=== PATIENT | male | born 1995 | race Caucasian/White ===

== ENCOUNTER 2024-10-04 12:34 | Emergency (ER) | payer BC, SELFPAY ==
[2024-10-04 12:41] VITALS: BP 147/74; PULSE 77; RESP 16; TEMP 37.1; O2SAT 100
--- NOTE | 2024-10-04 12:43 | ED.GENADULT ---
HPI - General Adult General Chief complaint: Dizziness Stated complaint: Dizziness Time Seen by Provider: 10/04/24 12:44 Source: patient Mode of arrival: ambulatory Limitations: no limitations History of Present Illness HPI narrative: 29 yo M presents with c/o dizziness for the past 6 hours. Dizziness is intermittent with blurry vision. none at this time. worse when standing or changing positions. Denies pain/headache. Reports feeling of fullness in sinuses but doesn't really feel congested. Denies sore throat, cough, fever, fatigue. Pt mentioned that he had migraines in the past that caused vision changes. Has not had any recently and never saw his PCP for them. Usually lasted about 20 minutes. ambulatory with steady gait. No numbness/tingling, weakness or pain to extremitities. Eating and drinking normally. no slurred speech. All systems reviewed and negative except as noted above. Related Data Allergies Allergy/AdvReac Type Severity Reaction Status Date / Time amoxicillin [From Augmentin] Allergy Hives Verified 10/04/24 12:47 clavulanic acid Allergy Hives Verified 10/04/24 12:47 [From Augmentin] Review of Systems Review of Systems: CONSTITUTIONAL: Denies fever, chills, or sweats. EYES: Denies visual changes, redness, or discharge. Reports intermittent blurry vision. ENT: Denies rhinorrhea, congestion, sore throat, or otalgia. CARDIOVASCULAR: Denies chest pain, palpitations, or edema. RESPIRATORY: Denies cough or dyspnea. GASTROINTESTINAL: Denies abdominal pain, nausea, vomiting, or diarrhea. GENITOURINARY: Denies dysuria or hematuria. SKIN: Denies rash or itching. MUSCULOSKELETAL: Denies back pain, joint pain, or myalgia. NEUROLOGIC: Denies headache, numbness, or weakness. Reports intermittent dizziness. PSYCHIATRIC: Denies anxiety or depression. All other systems reviewed are negative, except as documented in HPI. FORMERLY [facility] Surgical History Surgical History S/P LASIK surgery of both eyes Family History Family History Father Hypertension Social History Social History (Updated 03/07/23 @ 07:01 by Deisy Paul MA) Smoking status: Never smoker Alcohol use details: about once a month Substance use: never Substance use type: does not use Lack of Transportation: No Lack of Food: Never True Current Housing: I Have Housing Concerned About Future Housing: No Difficulty Paying Gas/Electric Bills: No Difficulty Paying for Meds: No Currently Unemployed: No Education: High School Diploma/GED Difficulty w/ Childcare or Family Care: No Living arrangements: with family Occupation/Education: occupation 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 There is no relevant family history pertinent to the presenting complaint. Exam Narrative: GENERAL: This is a well-nourished, well-developed patient, in no apparent distress. HEAD: normocephalic, atraumatic. EYES: PERRL. Sclera clear/white. Vision is grossly intact. Extraocular motions intact. EARS: External ears normal, auditory canals clear and without drainage, mild fluid to bilateral TMs without erythema or perforation. Hearing grossly intact. NOSE: External nose normal with no obvious nasal discharge, nares without redness, no rhinorrhea. THROAT: Mucous membranes moist, posterior pharynx clear. NECK: Neck supple, non-tender without lymphadenopathy, masses or thyromegaly. CARDIOVASCULAR: Regular rate and rhythm without murmurs, gallops, or rubs. RESPIRATORY: Clear to auscultation. Breath sounds equal bilaterally. No wheezes, rales, or rhonchi. SKIN: warm, Dry, intact with no suspicious lesions or rash, good texture and turgor. NEURO: awake, alert, and oriented to person, place and time. There were no obvious focal neurologic abnormalities. EXTREMITIES: No joint tenderness, effusion, or edema noted. Course Course Level of Care: Express Care Visit Vital Signs Vital signs: Vital Signs Temperature 37.1 C 10/04/24 12:41 Pulse Rate 77 10/04/24 12:41 Respiratory Rate 16 10/04/24 12:41 Blood Pressure 147/74 H 10/04/24 12:41 Pulse Oximetry 100 10/04/24 12:41 Temperature 37.1 C 10/04/24 12:41 Pulse Rate 77 10/04/24 12:41 Respiratory Rate 16 10/04/24 12:41 Blood Pressure 147/74 H 10/04/24 12:41 Pulse Oximetry 100 10/04/24 12:41 Reviewed Medical Decision Making MDM Narrative Medical decision making narrative: Patient's exam normal other than mild fluid to bilateral TMs. No neuro deficits. Negative influenza test. Blood sugar was 90. EKG HR 72, normal sinus with arrhythmia. No CP or SOB. Recommend pt follow up with PCP for further evaluation of EKG. Recommend flonase and Claritin D. If symptoms not improvoing or for any worsening of symptoms go to the ER. pt voiced understanding. Patient is aware of diagnosis, understands and agrees to treatment plan. Anticipatory guidance given. Patient agrees to follow-up as directed and is aware of reasons to seek care at the emergency department. Portions of this record may have been created with voice recognition software Vital Signs Vital Signs: Vital Signs Temperature 37.1 C 10/04/24 12:41 Pulse Rate 77 10/04/24 12:41 Respiratory Rate 16 10/04/24 12:41 Blood Pressure 147/74 H 10/04/24 12:41 Pulse Oximetry 100 10/04/24 12:41 Temperature 37.1 C 10/04/24 12:41 Pulse Rate 77 10/04/24 12:41 Respiratory Rate 16 10/04/24 12:41 Blood Pressure 147/74 H 10/04/24 12:41 Pulse Oximetry 100 10/04/24 12:41 Lab Data Labs: Lab Results 10/04/24 10/04/24 Range/Units 13:04 13:05 POC Capillary Glucose 90 (65-105) mg/dl POC Urine Color Yellow POC Urine Clarity Clear POC Urine pH 7.0 POC Ur Specif [place] 1.010 POC Urine Protein Negative (Negative) POC Ur Glucose (UA) Negative (Negative) POC Urine Ketones Negative (Negative) POC Urine Blood Negative (Negative) POC Urine Nitrite Negative (Negative) POC Urine Bilirubin Negative (Negative) POC Urine Urobilinogen 0.2 POC U Leukocyte Esteras Negative (Negative) POC Influenza A Ag Negative (Negative) POC Influenza B Ag Negative (Negative) Discharge Plan Discharge Clinical Impression: Acute sinusitis, Dizziness Patient Disposition: Home, Self-Care Condition: Stable Instructions: Antibiotic Form Additional Instructions: Your EKG was normal sinus rhythm with possible arrhythmia. Follow up with your doctor for a repeat EKG and further evaluation. Your blood sugar was 90. Your urinalysis was normal. Your influenza test was negative. Take [id number] Claritin D as directed on packaging. Use an rzvl-byj-gykkniy nasal spray such as Flonase or Nasacort as directed on packaging. Drink at least 64 oz water a day. If symptoms are not improving or for any worsening of your symptoms go to the ER. Prescriptions: No Action lisdexamfetamine 70 mg capsule 70 mg PO DAILY Qty: 90 0RF Follow-up/Referrals: Ishan Rogel MD [Primary Care Provider] - 1 Week Time of Disposition: 13:15
--- NOTE | 2024-10-04 12:50 | ECG_ITS ---
Test Date: 2024-10-04 13:02:02 Measurements Intervals [place] Rate: 72 P: 53 CO: 128 QRS: 64 QRSD: 118 T: 37 QT: 370 QTc: 405 Interpretive Statements SINUS RHYTHM WITH SINUS ARRHYTHMIA INCOMPLETE RIGHT BUNDLE BRANCH BLOCK POSSIBLE LEFT VENTRICULAR HYPERTROPHY MINIMAL Q WAVES- ANTEROLAT/INF LEADS BORDERLINE ECG No previous ECG available for comparison Electronically Signed On 10-04-2024 15:43:48 PROGRAM DIRECTOR/TRAFFIC DIRECTOR by Tawanda Kern D.O.
[2024-10-04 13:07] LABS: EDUAAPPEAR Clear; EDUABILI Negative (Negative); EDUABLOOD Negative (Negative); EDUACOLOR1 Yellow; EDUAGLUCOSE Negative (Negative); EDUAKETONE Negative (Negative); EDUALEUKO Negative (Negative); EDUANITRATE Negative (Negative); EDUAPROTEIN Negative (Negative); EDUAUROBILI 0.2
[2024-10-04 13:07] LABS: EDINFLUASCREEN Negative (Negative); EDINFLUBSCREEN Negative (Negative)
[2024-10-04 13:10] LABS: Glucose Point of Care 90 mg/dl (65-105)
== END 2024-10-04 13:17 | disposition home or self-care (01) ==
LOC: EXPGOSH 12:36
PROVIDERS: Emergency Provider Nurse Practitioner Family; PCP Family Medicine
DX: J01.90 Acute sinusitis, unspecified (principal); R42 Dizziness and giddiness
CPT/HCPCS: 81003; 82948; 87804; 93005; 99213; G0463

== ENCOUNTER 2024-10-14 10:39 | Outpatient (CLI) | payer BC, SELFPAY ==
[2024-10-14 19:56] LABS: Hematocrit 48.7 % (42.0-52.0); Hemoglobin 16.3 g/dL (14.0-18.0); Mean Corpuscular HGB Conc 33.5 g/dl (32-36); Mean Corpuscular Hemoglobin 29.5 pg (26-34); Mean Corpuscular Volume 88.1 fl (80-100); Mean Platelet Volume 11.3 fl (7.4-10.4); Platelet Count Result 179 k/mm3 (150-375); Red Blood Count 5.53 M/mm3 (4.6-6.20); White Blood Count 5.5 K/mm3 (4.5-10.0)
[2024-10-14 20:09] LABS: Alanine Aminotransferase 28 U/L (6-50); Albumin Level 4.8 g/dL (3.5-5.1); Alkaline Phosphatase 61 U/L (38-126); Anion Gap 7 mmol/L (4-12); Aspartate Amino Transferase 30 U/L (17-59); Bilirubin,Total 2.1 mg/dL (0.2-1.3); Blood Urea Nitrogen 17 mg/dL (9-20); Calcium 9.4 mg/dL (8.4-10.2); Carbon Dioxide 31 mmol/L (22-30); Chloride 102 mmol/L (98-107); Estimated Glomerular Filt Rate > 60; Glucose 94 mg/dL (65-110); Potassium 4.3 mmol/L (3.4-5.0); Sodium 140 mmol/L (137-145)
== END 2024-10-14 10:40 | disposition home or self-care (01) ==
LOC: ANHBWCLAB 10:40
PROVIDERS: PCP Nurse Practitioner Adult Health; Visit Provider Nurse Practitioner Adult Health
DX: R03.0 Elevated blood-pressure reading, without diagnosis of hypertension (principal)
CPT/HCPCS: 36415; 80053; 84443; 85027

== ENCOUNTER 2024-11-07 07:36 | Outpatient (CLI) | payer BC, SELFPAY ==
--- NOTE | 2024-11-07 07:43 | ECHO_ITS ---
Patient Info Name: Jesus Yarbrough Age: 29 years : 1995 Gender: Male Ht: 71 in Wt: 195 lbs BSA: 2.12 m2 HR: 72 bpm BP: 128 / 71 mmHg Heart Rhythm: Sinus Rhythm Technical Quality: Good Exam Date: 11/07/2024 7:46 AM Exam Location: Echo Lab Patient Status: Outpatient Admit Date: 11/07/2024 Staff Ordering Physician: Jelena Rogers APRN Electro Optical Engineer: Kyra Sanchez RDCS Attending Provider: Jelena Rogers APRN Referring Physician: Ken DAMON; Exam Type: CA echo doppler color flow Study Info Indications R94.31 - Abnormal electrocardiogram ECG EKG Complete two-dimensional, color flow and Doppler transthoracic echocardiogram is performed. Summary 1. Complete two-dimensional, color flow and Doppler transthoracic echocardiogram is performed. 2. Probable bicuspid aortic valve. moderate aortic insufficiency without aortic valve stenosis, Lid LV cavity dilatation, LVEF 56%. Recommendations * Recommend transesophageal echocardiogram if patient has worsening symptoms no no prior MYRON is available. Left Ventricular Outflow Tract Name Value Normal LVOT 2D LVOT Diameter 2.8 cm LVOT Doppler LVOT Peak Gradient 4 mmHg LVOT Mean Gradient 2 mmHg LVOT VTI 22 cm LVOT VTI/AV VTI Ratio 0.7 LVOT Stroke Volume 138 ml LVOT CO 7.5 l/min LVOT CI 3.5 l/min/m2 Pulmonic Valve Name Value Normal RVOT Doppler RVOT Peak Gradient 2 mmHg PV Doppler PV Peak Gradient 3 mmHg Mitral Valve Name Value Normal MV Doppler MV Decel [place] 310 cm/s2 MV PHT 73 ms MV Area (PHT) 3.0 cm2 4.0-5.0 MV Diastolic Function MV E Peak Velocity 78 cm/s MV A Peak Velocity 53 cm/s MV E/A 1.5 MV Decel Time 250 ms MV Annular TDI MV E/e' (Septal) 7.4 <=8.0 MV E/e' (Lateral) 5.5 <=8.0 MV E/e' (Average) 6.4 Tricuspid Valve Name Value Normal TV Regurgitation Doppler TR Peak Velocity 249 cm/s TR Peak Gradient 20 mmHg Estimated PAP/RSVP RA Pressure 10 mmHg <=5 PA Systolic Pressure 35 mmHg <36 RV Systolic Pressure 35 mmHg <36 Aorta Name Value Normal Ascending Aorta Ao Root Diameter (MM) 3.7 cm Ao Root Diam Index (MM) 1.8 cm/m2 Aortic Valve Name Value Normal AV Doppler AV Peak Velocity 158 cm/s AV Peak Gradient 10 mmHg AV Mean Gradient 5 mmHg AV VTI 30 cm AV Area (Cont Eq VTI) 4.7 cm2 >=3.0 AV Area (Cont Eq Leandro) 3.9 cm2 AV Regurgitation 2D LVOT Area 6.3 cm2 AV Regurgitation Doppler AR Decel Time 1,294 ms AR Decel [place] 347 cm/s2 AR PHT 375 ms Ventricles Name Value Normal LV Dimensions 2D/MM IVS Diastolic Thickness (2D) 1.0 cm 0.6-1.0 LVID Diastole (2D) 5.7 cm 4.2-5.8 LVIW Diastolic Thickness (2D) 1.0 cm 0.6-1.0 LVID Systole (2D) 4.0 cm 2.5-4.0 LVOT Diameter 2.8 cm LV Mass (2D Cubed) 226.84 g 88.00-224.00 LV Mass Index (2D Cubed) 107 g/m2 49-115 Relative Wall Thickness (2D) 0.34 LV Fractional Shortening/Ejection Fraction 2D/MM LV Fractional Shortening (2D) 29 % 25-43 LV EF (2D Teicholz) 55 % 52-72 LV Diastolic Volume (4C MOD) 186 ml LV EF (4C MOD) 56 % LV Diastolic Volume (2C MOD) 147 ml LV EF (2C MOD) 55 % LV Diastolic Volume (BP MOD) 167 ml 62-150 LV Diastolic Volume Index (BP MOD) 79 ml/m2 34-74 LV Systolic Volume (BP MOD) 76 ml 21-61 LV Systolic Volume Index (BP MOD) 36 ml/m2 11-31 LV EF (BP MOD) 54 % 52-72 LV Diastolic Length (4C) 10.5 cm LV Systolic Length (4C) 8.5 cm LV Stroke Volume (4C MOD) 104 ml Atria Name Value Normal LA Dimensions LA Dimension (MM) 3.7 cm 3.0-4.1 LA Volume (4C A-L) 54 ml LA Volume (BP A-L) 62 ml RA Dimensions RA Area (4C) 16.7 cm2 <=18.0 Report Signatures
== END 2024-11-07 07:37 | disposition home or self-care (01) ==
LOC: ANHCARD 07:37
PROVIDERS: PCP Nurse Practitioner Adult Health; Visit Provider Nurse Practitioner Adult Health
DX: R94.31 Abnormal electrocardiogram [ECG] [EKG] (principal)
CPT/HCPCS: 93306